=== PATIENT | male | born 1945 | race Caucasian/White ===

== ENCOUNTER → 2016-07-25 | Outpatient (CLI) | payer MEDICARE, OTHER ==
[~2016-07-25] MED LIST: ACAI BERRY500 MG PO; ALEVE PO; ARIXTRA2.5 MG/0.1; ARIXTRA2.5 MG/0.5 INJ; BP MED; CERTAGEN PO; FISH OIL PO; FISHOIL; FLOMAX PO; FLOMAX0.4 M1 PO; HYDROCODONE-APA1 T33 PO; LEVAQUIN PO; LORTAB 10/500 T1 TAB PO; METRONIDAZOLE PO; MULTI VIT PO; MULTIVITAMIN1 UDCAP PO; OMEPRAZOLE40 MG PO; OPDIVO; OXYCODONE; PATIENT'S PHARMACY; PERCOCET5/325 PO; PROTONIX PO; SAW PALMETTO; SODIUM BICARBO650 MG PO; TYLENOL ARTHRITIS PO; VICODIN 5/500 T1 TAB PO; VIT B-12 PO; VITAMIN A PO; VITAMIN B 12; VITAMIN C DAILY; VITAMIN C PO; VITAMIN D 4001 UDTAB PO; VITAMIN D DAILY; [UNRECOGNIZED DRUG - OTHER]
--- NOTE | ~2016-07-25 | MR113 ---
[facility] A Service of [facility] & [facility] RADIOLOGY TEXT RESULTS PATIENT: IMANI WHITLEY LOCATION: [facility] : 47 UNIT #: [id number] AGE: [address]: Ahsan Sanchez MD SEX: M ORDER DR: [id number] [address] [address] [id number] O MR#: [id number] Acc #: [id number] NAME: IMANI WHITLEY : 1945 SEX: M STUDY DATE/TIME: 07/25/2016 8:47 UNIT: [facility] ROOM: STUDY DESCRIPTION: MR Lumbar Wo Contrast Attending Physician: Ahsan Sanchez Referring Physician: Ahsan Sanchez Ordering Physician: Physician Non-Staff Primary Care Physician: Jesus Altman M.D. MRI CENTER REPORT This report is preliminary unless electronic signature is present. EXAM MRI of the lumbar spine without contrast dated 07/25/2016. COMPARISON None. HISTORY Increasing low back pain for the last 2-3 months, particularly in the right side. History of renal cell carcinoma. FINDINGS Multisequence, multiplanar imaging of the lumbar spine was obtained without contrast. Patient has a solitary kidney with renal insufficiency, and hence refused contrast at this time. Vertebral body heights and alignment are preserved. There is a fatty signal lesion with some edema noted in the right L1 pedicle. It is probably a non-aggressive lesion, like atypical hemangioma. Degenerative disc signal loss is seen throughout the visualized thoracolumbar spine. Conus terminates at inferior L1, close to L1-2. Signal of conus and cauda equina are within normal limits. Pre- and paravertebral soft tissues do not demonstrate any significant abnormality. L1-2: Mild disc bulge, which is slightly prominent in the left foraminal to extraforaminal region suspicious for small protrusion. Mild inferior left neural foraminal encroachment is seen with mild bilateral facet changes. No canal stenosis. L2-3: Mild disc bulge with superimposed left foraminal to extraforaminal broad-based protrusion with mild to moderate left neural foraminal narrowing. Mild bilateral facet changes are noted without canal stenosis. L3-4: Moderate disc bulge with superimposed bilateral foraminal to extraforaminal broad-based disc protrusions, slightly worse on the left. [facility]. [facility] A Service of [facility] RADIOLOGY TEXT RESULTS PATIENT: IMANI WHITLEY LOCATION: [facility] : 47 UNIT #: [id number] AGE: [address]: Ahasn Sanchez MD SEX: M ORDER DR: There is some irregularity in the left ligamentum flavum. It is unclear if patient has had prior surgery at this level. Mild to moderate left facet hypertrophic changes seen. There are bilateral foraminal to extraforaminal broad-based protrusions, worse on the left. Mild bilateral neural foraminal narrowing is seen, worse on the left. L4-5: Concentric disc bulge which is asymmetrically prominent in bilateral foraminal to extraforaminal regions suggestive of superimposed mild broad-based protrusions. Very severe right and severe left facet hypertrophic changes are noted with mild canal stenosis. Mild bilateral neural foraminal narrowing is seen. L5-S1: Concentric disc bulge with moderate to severe left and mild right facet hypertrophic change. No canal stenosis or neural foraminal narrowing. There is a mass in the left lateral aspect of the thoracic spine at the level of T12. It is noted in the region of the costovertebral joint, adjacent pedicle and left rib. It is seen only in the edge of the sagittal images and is incompletely characterized on the current study. Refer to MRI of the abdomen, which demonstrates this lesion in better detail when compared to the current study. There is a fatty signal lesion with some edema noted in the right L1 pedicle. It is probably a non-aggressive lesion, like atypical hemangioma. IMPRESSION 1. In the left lateral aspect of the spine abutting the left T12 pedicle, left lateral body, there is a mass which measures 1.8 cm in AP dimension and 2.2 cm in height. It is anterior and probably abutting the left transverse process of T12. Axial images were not obtained through this level, as it is a lumbar spine study. Refer to MRI of the abdomen from 07/07/2016, which demonstrates this finding in better detail. In a setting of malignancy, it is likely metastatic disease. 2. Degenerative changes are noted at multiple levels of the lumbar spine as described above, relatively worse at L3-4 and L4-5. 3. There is irregularity noted in the left ligamentum flavum of L3-4. It is unclear if patient has had previous intervention in this region. Correlate with history. It is noted only in portions of the ligamentum along the superior aspect but the inferior aspect it is intact. No postoperative fluid collections are seen. There is some change noted in the left paraspinal soft tissue at this level. 4. There is a fatty signal lesion with some edema noted in the right L1 pedicle. It is probably a non-aggressive lesion, like atypical hemangioma. STS. [facility] A Service of [facility] RADIOLOGY TEXT RESULTS PATIENT: IMANI WHITLEY LOCATION: [facility] #: [id number] : 49 UNIT #: [id number] AGE: [address]: Ahsan Sanchez MD SEX: M ORDER DR: Dictated by... Gabrielle Adkins M.D. THIS IS AN ELECTRONICALLY VERIFIED REPORT Gabrielle Adkins M.D. at 07/27/2016 9:04 AM CPR/psc TD: 07/25/2016 23:30 JOB #: [id number] MRI CENTER REPORT
== END | disposition home or self-care (01) ==
LOC: SMRI 08:19
DX: N17.9 Acute kidney failure, unspecified (principal); M47.816 Spondylosis without myelopathy or radiculopathy, lumbar region; G95.9 Disease of spinal cord, unspecified; Z85.528 Personal history of other malignant neoplasm of kidney
CPT/HCPCS: 72148

== ENCOUNTER → 2016-07-28 | Outpatient (CLI) | payer MEDICARE, OTHER ==
--- NOTE | ~2016-07-28 | NM8 ---
[facility] A Service of [facility] & [facility] RADIOLOGY TEXT RESULTS PATIENT: IMANI WHITLEY LOCATION: [facility] : 49 UNIT #: [id number] AGE: [address]: Albert Steiner MD SEX: M ORDER DR: [id number] [facility] [address] [place], [place] [address] [id number] O MR#: [id number] Acc #: [id number] NAME: IMANI WHITLEY : 1945 SEX: M STUDY DATE/TIME: 07/28/2016 11:15 UNIT: [facility] ROOM: STUDY DESCRIPTION: DC Bone or Joint Whole Body Attending Physician: Albert Steiner M.D. Referring Physician: Albert Steiner M.D. Ordering Physician: Albert Steiner M.D. Primary Care Physician: Jesus Altman M.D. MEDICAL IMAGING REPORT This report is preliminary unless electronic signature is present EXAM Whole-body bone scan HISTORY 71-year-old male diagnosed with renal cell carcinoma 22 years ago. Surveillance for metastatic disease. Complains of diffuse body pain, pain lower back. COMPARISON MR pelvis 07/07/2016, CT chest 07/07/2016. FINDINGS Whole-body and selected spot images were performed of the axial and appendicular skeleton following the intravenous administration of 28.9 mCi technetium 99m MDP. Examination demonstrates multiple foci of abnormal uptake to include the right anterior seventh rib, left anterior eighth rib and also at the left T12 costovertebral junction. This corresponds to expansile bone lesions and soft tissue lesions noted on recent chest CT and are most compatible with osseous metastatic disease in this patient with a history of renal cell carcinoma. There are probably 2 foci of increased uptake involving the left ribs involving both the eighth and ninth posterior lateral ribs. Again this is most compatible with metastatic disease. Degenerative uptake noted in the right knee. Patient status post left total knee arthroplasty. There is absence of the left renal activity consistent with a nephrectomy. Degenerative uptake is seen within the left foot and ankle and also at the right first CMC joint. IMPRESSION Abnormal uptake within the right seventh and left eighth and ninth ribs and also near the left T12 costovertebral junction corresponding to bone lesions noted on recent chest CT and are most compatible with areas of osseous metastatic disease. No other definite foci of osseous metastatic disease are demonstrated. [facility] A Service of [facility] RADIOLOGY TEXT RESULTS PATIENT: IMANI WHITLEY LOCATION: [facility] : 47 UNIT #: [id number] AGE: [address]: Albert Steiner MD SEX: M ORDER DR: Dictated by... Alexandra Lyman M.D. THIS IS AN ELECTRONICALLY VERIFIED REPORT Alexandra Lyman M.D. at 07/29/2016 5:10 PM KEY/lelia TD: 07/29/2016 06:08 JOB #: [id number] MEDICAL IMAGING REPORT COPY
== END | disposition home or self-care (01) ==
LOC: CNUC 07:48
DX: C65.1 Malignant neoplasm of right renal pelvis (principal); E03.9 Hypothyroidism, unspecified; R94.8 Abnormal results of function studies of other organs and systems
CPT/HCPCS: 78306; A9503

== ENCOUNTER → 2016-09-19 | Outpatient (CLI) | payer MEDICARE, OTHER ==
--- NOTE | ~2016-09-19 | MR3 ---
[facility] A Service of [facility] RADIOLOGY TEXT RESULTS PATIENT: IMANI WHITLEY LOCATION: [facility] : 47 UNIT #: [id number] AGE: [address]: Jesus Altman MD SEX: M ORDER DR: [id number] [address] [address] [id number] O MR#: [id number] Acc #: [id number] NAME: IMANI WHITLEY : 1945 SEX: M STUDY DATE/TIME: 09/19/2016 14:27 UNIT: [facility] ROOM: STUDY DESCRIPTION: MR Abdomen Wo Contrast Attending Physician: Jesus Altman M.D. Referring Physician: Jesus Altman M.D. Ordering Physician: Jesus Altman M.D. Primary Care Physician: Jesus Altman M.D. MRI CENTER REPORT This report is preliminary unless electronic signature is present. EXAM MR abdomen INDICATION Renal cell carcinoma. Observation for metastatic disease status post chemotherapy and radiation therapy. TECHNIQUE Multiplanar MRI of the abdomen without contrast. COMPARISON CT abdomen and pelvis dated 09/19/2016 and MR abdomen and pelvis dated 07/07/2016. FINDINGS There are 2 rib lesions on the left posterior lateral chest wall/costophrenic sulcus. These are unchanged from the prior MRI. The initial index lesion measures 3.3 x 1.4 cm compared to 3.1 x 1.3 cm. The second lesion measures 3.4 x 2.4 cm compared to 3.6 x 2.4 cm. No new lesions are identified. Patient is status post left nephrectomy and left adrenalectomy. The right adrenal gland and right kidney are unchanged. There is a small cyst in the lower pole right kidney. The bowel is not dilated. Liver, pancreas, spleen are unchanged. A lesion near the costovertebral junction of the 12th rib is unchanged measuring 1.7 cm (2.0 cm previously). IMPRESSION No evidence of disease progression. The lesions associated with the [facility] A Service [facility] RADIOLOGY TEXT RESULTS PATIENT: IMANI WHITLEY LOCATION: [facility] : 47 UNIT #: [id number] AGE: [address]: Jesus Altman MD SEX: M ORDER DR: costophrenic angle/left posterior lateral ribs are unchanged. Lesion adjacent to the T12 vertebra is also unchanged. Dictated by... Solis Jung M.D. THIS IS AN ELECTRONICALLY VERIFIED REPORT Solis Jung M.D. at 09/21/2016 2:46 PM KIRSTIN/mik TD: 09/21/2016 12:22 JOB #: [id number] MRI CENTER REPORT Page 1 of 1
--- NOTE | ~2016-09-19 | CT57 ---
[facility] A Service of [facility] & [facility] RADIOLOGY TEXT RESULTS PATIENT: IMANI WHITLEY LOCATION: [facility] : 47 UNIT #: [id number] AGE: [address]: Jesus Altman MD SEX: M ORDER DR: [id number] [address] [address] [id number] O MR#: [id number] Acc #: [id number] NAME: IMANI WHITLEY : 1945 SEX: M STUDY DATE/TIME: 09/19/2016 13:57 UNIT: [facility] ROOM: STUDY DESCRIPTION: CT Chest Wo Cont Attending Physician: Jesus Altman M.D. Referring Physician: Jesus Altman M.D. Ordering Physician: Jesus Altman M.D. Primary Care Physician: Jesus Altman M.D. MEDICAL IMAGING REPORT This report is preliminary unless electronic signature is present. EXAM CT of the chest without contrast INDICATIONS Left renal cancer. This patient has a known history of metastatic disease. This exam is requested for surveillance for metastatic disease. TECHNIQUE Axial CT images were obtained from the thoracic inlet through the dome of the diaphragm. No intravenous contrast material was administered. This CT exam was performed with one or more of the following radiation dose reduction techniques: Automatic exposure control, adjustment of mA and/or kV according to patient size, and iterative reconstruction. FINDINGS There is a stable area of scarring identified within the right upper lobe. There is a left lower lobe pulmonary nodule which measures about 1.2 cm in size; it has increased in size when compared to the prior examination. Some additional scarring is seen within the left lower lobe and within the lingula. Thyroid gland, trachea and esophagus appear unremarkable. There is no pleural or pericardial effusion. There is aneurysmal dilatation of the ascending thoracic aorta measuring up to 4.3 cm. Aortic root is also dilated at 4 cm. Mediastinal lymph nodes really do not appear pathologically enlarged. Patient's CT of the abdomen will be dictated separately. There is a metastasis associated with the left ninth rib which has increased in size when compared to the prior examination. There is also an additional metastasis involving the left twelfth rib which also appears slightly larger at 1.5 x 1.8 cm. There is metastatic involvement of the right seventh rib which has also progressed with a soft tissue component measuring up to about 4.9 x 2.1 cm. I am not convinced I can see any new osseous lesions. [facility]. [facility] A Service of [facility] & [facility] RADIOLOGY TEXT RESULTS PATIENT: IMANI WHITLEY LOCATION: [facility] : 47 UNIT #: [id number] AGE: [address]: Jesus Altman MD SEX: M ORDER DR: IMPRESSION 1. Patient is again noted to have multiple osseous metastases. These have increased in size when compared to the prior exam from June 2016. This is characteristic of progression of disease. I do not however see any new osseous lesions on today's exam. There is also a nodule seen within the left lower lobe which has increased in size. This nodule measures up to about 1.2 cm. Previously it measured about 1 cm and this certainly is concerning for pulmonary metastatic disease. No additional pulmonary nodules or masses are seen. Patient's CT of the abdomen and pelvis will be dictated separately. 2. Aneurysmal dilatation of the ascending thoracic aorta and aortic root. 3. Please see the body of the report for any other additional incidental findings. Dictated by... Kiana Escobar M.D. THIS IS AN ELECTRONICALLY VERIFIED REPORT Kiana Escobar M.D. at 09/20/2016 4:58 PM AFF/psc TD: 09/19/2016 21:12 JOB #: [id number] MEDICAL IMAGING REPORT Page 1 of 1
--- NOTE | ~2016-09-19 | CT4 ---
[facility] A Service of [facility] & [facility] RADIOLOGY TEXT RESULTS PATIENT: IMANI WHITLEY LOCATION: [facility] : 47 UNIT #: [id number] AGE: [address]: Jesus Altman MD SEX: M ORDER DR: [id number] [place] [id number] O MR#: [id number] Acc #: [id number] NAME: IMANI WHITLEY : 1945 SEX: M STUDY DATE/TIME: 09/19/2016 12:59 UNIT: [facility] ROOM: STUDY DESCRIPTION: CT Abd and Pelv Wo Cont Attending Physician: Jesus Altman M.D. Referring Physician: Jesus Altman M.D. Ordering Physician: Jesus Altman M.D. Primary Care Physician: Jesus Altman M.D. MEDICAL IMAGING REPORT This report is preliminary unless electronic signature is present. EXAM CT abdomen and pelvis without contrast 09/19/2016 INDICATIONS Renal cell carcinoma. Restaging. Observation for metastatic disease. PROCEDURE Unenhanced CT of the abdomen and pelvis. This CT exam was performed with one or more of the following radiation dose reduction techniques: automatic exposure control, adjustment of mA and/or kV according to patient size, and iterative reconstruction. COMPARISON STUDIES 07/21/2015 and MRI of the abdomen from 11/24/2015 FINDINGS Refer to the separately dictated chest CT for thoracic findings. ABDOMEN WITHOUT CONTRAST: Mild hepatic steatosis. The spleen, right kidney, right adrenal gland, pancreas are unremarkable. Previous cholecystectomy. Uncomplicated sigmoid diverticula. Appendix is normal. Bowel loops are nondilated. The patient is status post left nephrectomy and adrenalectomy. No abdominal adenopathy. PELVIS WITHOUT CONTRAST: No pelvic mass or fluid. There is a lucent lesion in the medial left twelfth rib that measures 1.5 cm. It is not significantly changed. Lytic lesion involving the posterolateral left ninth rib, measures approximately 3.2 cm. This previously measured at 2.1 cm on the previous MRI. No new bone lesions are seen. [facility] A Service of [facility] & [facility] RADIOLOGY TEXT RESULTS PATIENT: IMANI WHITLEY LOCATION: [facility] : 47 UNIT #: [id number] AGE: [address]: Jesus Altman MD SEX: M ORDER DR: IMPRESSION 1. A lytic lesion involving the posterolateral left ninth rib measures slightly larger than on the previous MRI on 11/24/2015. This partially could be related to differences in technique, but it does not appear larger. A lytic lesion in the medial left twelfth rib appears to be stable. 2. No evidence for soft tissue metastatic disease in the abdomen or pelvis. 3. Mild hepatic steatosis. 4. Prior left nephrectomy and adrenalectomy changes. 5. Refer to the separately dictated CT of the chest for thoracic findings. Dictated by... Beto Miller M.D. THIS IS AN ELECTRONICALLY VERIFIED REPORT Beto Miller M.D. at 09/22/2016 7:05 AM Robin TD: 09/19/2016 15:36 JOB #: [id number] MEDICAL IMAGING REPORT Page 1 of 1
--- NOTE | ~2016-09-19 | MR152 ---
[facility] A Service [facility] RADIOLOGY TEXT RESULTS PATIENT: IMANI WHITLEY LOCATION: [facility] : 47 UNIT #: [id number] AGE: [address]: Jesus Altman MD SEX: M ORDER DR: [id number] [place] [id number] O MR#: [id number] Acc #: [id number] NAME: IMANI WHITLEY : 1945 SEX: M STUDY DATE/TIME: 09/19/2016 14:51 UNIT: [facility] ROOM: STUDY DESCRIPTION: MR Pelvis Wo Contrast Attending Physician: Jesus Altman M.D. Referring Physician: Jesus Altman M.D. Ordering Physician: Jesus Altman M.D. Primary Care Physician: Jesus Altman M.D. MRI CENTER REPORT This report is preliminary unless electronic signature is present. EXAM MR pelvis without contrast. INDICATION Renal cell carcinoma. Observation for metastatic disease. Restaging. TECHNIQUE Multiplanar MRI of the pelvis without contrast. COMPARISON CT chest, abdomen and pelvis dated 09/19/2016 and MR abdomen and pelvis dated 07/07/2016. FINDINGS No pathologically enlarged pelvic or inguinal lymph nodes. No abnormal bone marrow signal. Bladder is unremarkable. There are small bilateral hydroceles. IMPRESSION No evidence of metastatic disease in the pelvis. Dictated by... Solis Jung M.D. THIS IS AN ELECTRONICALLY VERIFIED REPORT Solis Jung M.D. at 09/21/2016 2:46 PM RPC/karen TD: 09/21/2016 12:28 JOB #: [id number] [facility] A [facility] RADIOLOGY TEXT RESULTS PATIENT: IMANI WHITLEY LOCATION: [facility] : 47 UNIT #: [id number] AGE: [address]: Jesus Altman MD SEX: M ORDER DR: MRI CENTER REPORT Page 1 of 1
== END | disposition home or self-care (01) ==
LOC: SCT 12:56
DX: C64.2 Malignant neoplasm of left kidney, except renal pelvis (principal); C79.51 Secondary malignant neoplasm of bone; C78.02 Secondary malignant neoplasm of left lung; N28.9 Disorder of kidney and ureter, unspecified; K76.0 Fatty (change of) liver, not elsewhere classified; I71.2 Thoracic aortic aneurysm, without rupture; Z90.5 Acquired absence of kidney; Z90.89 Acquired absence of other organs
CPT/HCPCS: 71250; 72195; 74176; 74181

== ENCOUNTER → 2016-11-18 | Outpatient (CLI) | payer MEDICARE, OTHER ==
--- NOTE | ~2016-11-18 | MR152 ---
[facility] A Service [facility] RADIOLOGY TEXT RESULTS PATIENT: IMANI WHITLEY LOCATION: [facility] : 49 UNIT #: [id number] AGE: [address]: Jesus Altman MD SEX: M ORDER DR: [id number] [address] [address] [id number] O MR#: [id number] Acc #: [id number] NAME: IMANI WHITLEY : 1945 SEX: M STUDY DATE/TIME: 11/18/2016 9:09 UNIT: [facility] ROOM: STUDY DESCRIPTION: MR Pelvis Wo Contrast Attending Physician: Jesus Altman M.D. Referring Physician: Jesus Altman M.D. Ordering Physician: Jesus Altman M.D. Primary Care Physician: Jesus Altman M.D. MRI CENTER REPORT This report is preliminary unless electronic signature is present. EXAM MRI of the pelvis. HISTORY Renal cell carcinoma with bone metastasis. Patient for restaging and observation for metastatic disease. COMPARISON MRI of the pelvis, 09/19/2016. TECHNIQUE Multiplanar, multiecho imaging was performed of the hips and pelvis utilizing a high-field magnet dedicated protocol. FINDINGS Bone structure and alignment appears normal. No focal bone lesion identified. Minimal degenerative change, lower lumbar spine. SI joints and hip joints unremarkable. Proximal pelvic thigh musculature appears normal. Internal pelvic structures unremarkable. IMPRESSION No MRI findings to suggest metastatic disease to the pelvis. Dictated by... Alexandra Lyman M.D. THIS IS AN ELECTRONICALLY VERIFIED REPORT Alexandra Lyman M.D. at 11/22/2016 9:30 AM JAMELS/maximust [facility] A Service [facility] RADIOLOGY TEXT RESULTS PATIENT: IMANI WHITLEY LOCATION: [facility] : 49 UNIT #: [id number] AGE: [address]: Jesus Altman MD SEX: M ORDER DR: TD: 11/18/2016 17:53 JOB #: [id number] MRI CENTER REPORT Page 1 of 1
--- NOTE | ~2016-11-18 | MR3 ---
[facility] A Service [facility] RADIOLOGY TEXT RESULTS PATIENT: IMANI WHITLEY LOCATION: [facility] : 49 UNIT #: [id number] AGE: [address]: Jesus Altman MD SEX: M ORDER DR: [id number] [address] [address] [id number] O MR#: [id number] Acc #: [id number] NAME: IMANI WHITLEY : 1945 SEX: M STUDY DATE/TIME: 11/18/2016 8:43 UNIT: [facility] ROOM: STUDY DESCRIPTION: MR Abdomen Wo Contrast Attending Physician: Jesus Altman M.D. Referring Physician: Jesus Almtan M.D. Ordering Physician: Jesus Altman M.D. Primary Care Physician: Jesus Altman M.D. MRI CENTER REPORT This report is preliminary unless electronic signature is present. EXAM MRI abdomen without contrast INDICATION Renal cell carcinoma. Restaging. Observation for response to therapy metastatic disease. PROCEDURE Multiplanar, multisequence MR imaging of the abdomen without the administration of contrast. COMPARISON 09/19/2016. FINDINGS Two left posterolateral rib lesions are not significantly changed. One measures 3.1 x 1.4 cm and the other 3.3 x 2.1 cm. A left paravertebral lesion just to the left of the T12 vertebral body measures 1.6 cm and is also not significantly changed. No convincing evidence for new metastatic disease. There are a few small liver and splenic cysts. Spleen is stable in size. Previous left nephrectomy and adrenalectomy. Small cyst in the right kidney. There is a small nodule adjacent to the tail of pancreas that follows splenic signal favored to represent a splenule. The pancreas, bowel loops have normal signal. Previous cholecystectomy. IMPRESSION No change from 09/19/2016. No evidence for disease progression. Stable left posterolateral rib lesions and a paravertebral lesion on the left at the T12 level. [facility] A Service [facility] RADIOLOGY TEXT RESULTS PATIENT: IMANI WHITLEY LOCATION: [facility] #: [id number] : 49 UNIT #: [id number] AGE: [address]: Jesus Altman MD SEX: M ORDER DR: STAT * RESULT Dictated by... Beto Miller M.D. THIS IS AN ELECTRONICALLY VERIFIED REPORT Beto Miller M.D. at 11/21/2016 1:15 PM ANNE/lelia TD: 11/21/2016 08:58 JOB #: [id number] MRI CENTER REPORT Page 1 of 1
--- NOTE | ~2016-11-18 | CT57 ---
[facility] A Service of [facility] & [facility] RADIOLOGY TEXT RESULTS PATIENT: IMANI WHITLEY LOCATION: [facility] : 47 UNIT #: [id number] AGE: [address]: Jesus Altman MD SEX: M ORDER DR: [id number] [address] [address] [id number] O MR#: [id number] Acc #: [id number] NAME: IMANI WHITLEY : 1945 SEX: M STUDY DATE/TIME: 11/18/2016 08:36 UNIT: [facility] ROOM: STUDY DESCRIPTION: CT Chest Wo Cont Attending Physician: Jesus Altman M.D. Referring Physician: Jesus Altman M.D. Ordering Physician: Jesus Altman M.D. Primary Care Physician: Jesus Altman M.D. MEDICAL IMAGING REPORT This report is preliminary unless electronic signature is present. EXAM CT chest without contrast, 11/18/2016, 0836 hours. HISTORY 71-year-old man with history of renal cell carcinoma with history of recent chemo and radiation therapy. Patient complains of diffuse bone pain. Observation for suspected malignant neoplasm. COMPARISON Chest CT, 09/19/2016. TECHNIQUE Helical noncontrasted images were obtained from the thoracic inlet through the adrenal glands. Sagittal and coronal reconstructions were performed. Total exam DLP 917 mGy-cm. This CT exam was performed with one or more of the following radiation dose reduction techniques: automatic exposure control, adjustment of mA and/or kV according to patient size, and iterative reconstruction. FINDINGS Images through the thoracic inlet are degraded by streak artifact. No definite adenopathy is seen. There is ascending aortic aneurysm measuring 4.3 cm, unchanged from prior study. Aortic root is mildly dilated and unchanged. Cardiac chambers, pericardium, and esophagus are normal. There is no lymphadenopathy. Lung window images demonstrate stable linear scarring with calcification in the right upper lobe. There is linear scarring in the lingula. There is a nodule of the extreme left lung base lateral to the dome of the left hemidiaphragm now measuring 7 mm, previously 1.2 cm. It is smaller and more well defined on today's study suggesting improvement. No definite new lung nodules. [facility] A Service of [facility] RADIOLOGY TEXT RESULTS PATIENT: IMANI WHITLEY LOCATION: [facility] : 49 UNIT #: [id number] AGE: [address]: Jesus Altman MD SEX: M ORDER DR: Limited views through the upper abdomen demonstrate no liver lesion. The right adrenal gland is normal. There is left nephrectomy change. Bone window images suggest interval improvement. There is decrease in soft tissue mass associated with the destructive lesion at the lateral left ninth rib. Residual soft tissue density measures 3.2 x 2.5 cm, previously 3.3 x 3.6 cm. Soft tissue density associated with a lytic lesion at the medial left 12th rib has improved, now measuring 1.6 x 1.5 cm, previously 1.8 x 1.5 cm. Soft tissue density and destructive lesion at the anterolateral right seventh rib has also improved measuring 1.9 x 0.9 cm, previously 4.9 x 2.1 cm. No new bone lesions are seen. IMPRESSION As compared to 09/19/2016, there has been interval decrease in size of a nodule in the left lower lobe now 7 mm, previously 12 mm. There is interval decrease in the soft tissue component at the lytic lesions at the left 9th, 12th ribs and the right seventh rib. No new rib lesions are seen. Dictated by... Zenaida Alarcon M.D. THIS IS AN ELECTRONICALLY VERIFIED REPORT Zenaida lAarcon M.D. at 11/18/2016 2:33 PM Lisa TD: 11/18/2016 12:49 JOB #: [id number] MEDICAL IMAGING REPORT Page 1 of 1
== END | disposition home or self-care (01) ==
LOC: SMRI 08:15
DX: C79.51 Secondary malignant neoplasm of bone (principal); C78.00 Secondary malignant neoplasm of unspecified lung; R91.1 Solitary pulmonary nodule; C64.9 Malignant neoplasm of unspecified kidney, except renal pelvis; N28.9 Disorder of kidney and ureter, unspecified; M70.22 Olecranon bursitis, left elbow
CPT/HCPCS: 71250; 72195; 74181

== ENCOUNTER → 2017-01-30 | Outpatient (CLI) | payer MEDICARE, OTHER ==
--- NOTE | ~2017-01-30 | MR152 ---
[facility] A Service of [facility] RADIOLOGY TEXT RESULTS PATIENT: IMANI WHITLEY LOCATION: [facility] : 47 UNIT #: [id number] AGE: [address]: Jesus Altman MD SEX: M ORDER DR: [id number] [place] [id number] O MR#: [id number] Acc #: [id number] NAME: IMANI WHITLEY : 1945 SEX: M STUDY DATE/TIME: 01/30/2017 9:11 UNIT: [facility] ROOM: STUDY DESCRIPTION: MR Pelvis Wo Contrast Attending Physician: Jesus Altman M.D. Referring Physician: Jesus Altman M.D. Ordering Physician: Jesus Altman M.D. Primary Care Physician: Jesus Altman M.D. MRI CENTER REPORT This report is preliminary unless electronic signature is present. EXAM MRI pelvis without contrast. INDICATIONS Renal cell carcinoma. Restaging. Observation for metastatic disease. PROCEDURE Unenhanced multiplanar, multisequence MR imaging of the pelvis. COMPARISON 11/18/2016 FINDINGS No convincing evidence for metastatic disease in the pelvis. There is a trace amount of strandy fluid in the lower abdomen and pelvis. There are bilateral hydroceles that are similar to the previous study. The bladder and prostate gland have normal signal intensity. No appreciable abnormal marrow signal. IMPRESSION No evidence for metastatic disease to the pelvis. Dictated by... Beto Miller M.D. THIS IS AN ELECTRONICALLY VERIFIED REPORT Beto Miller M.D. at 02/01/2017 8:05 AM EED/adria TD: 01/31/2017 14:25 JOB #: [id number] [facility] A Service [facility] RADIOLOGY TEXT RESULTS PATIENT: IMANI WHITLEY LOCATION: [facility] : 49 UNIT #: [id number] AGE: [address]: Jesus Altman MD SEX: M ORDER DR: MRI CENTER REPORT Page 1 of 1
--- NOTE | ~2017-01-30 | CT57 ---
[facility] A Service of [facility] RADIOLOGY TEXT RESULTS PATIENT: IMANI WHITLEY LOCATION: [facility] : 49 UNIT #: [id number] AGE: [address]: Jesus Altman MD SEX: M ORDER DR: [id number] [address] [address] [id number] O MR#: [id number] Acc #: [id number] NAME: IMANI WHITLEY : 1945 SEX: M STUDY DATE/TIME: 01/30/2017 8:28 UNIT: [facility] ROOM: STUDY DESCRIPTION: CT Chest Wo Cont Attending Physician: Jesus Altman M.D. Referring Physician: Jesus Altman M.D. Ordering Physician: Jesus Altman M.D. Primary Care Physician: Jesus Altman M.D. MEDICAL IMAGING REPORT This report is preliminary unless electronic signature is present. EXAM CT chest without contrast HISTORY A 71-year-old male with metastatic renal cell carcinoma. Patient has undergone previous left nephrectomy. Patient with known lung metastases and bone metastases. Shortness of air. COMPARISON STUDIES CT chest 11/18/[address] exam was performed with one or more of the following radiation dose reduction techniques: automatic exposure control, adjustment of mA and/or kV according to patient size, and iterative reconstruction. FINDINGS Axial images performed through the chest without contrast. Multiplanar reconstructed images reviewed at a workstation. There is a new parenchymal opacity right lateral lung base, measuring up to 6 cm may represent a focal area of airspace disease and pneumonia. Given that this is new from November, a neoplastic process considered unlikely. Small amount of lingular and left lower lobe atelectasis and moderate amount of right upper lobe atelectasis and scarring. Focal scarring and pleural calcifications are seen in the right upper lobe unchanged from prior studies. Trachea and bronchi unremarkable. Heart aorta and pulmonary vessels unremarkable. No significant mediastinal or hilar lymphadenopathy. There is a destructive bone lesion within the left lateral ninth rib with a sizeable pleural component with extension through the chest wall and into the lateral chest wall. This measures about 4.5 x 3.5 cm in greatest dimensions and appears mildly increased when compared to the November study. [facility] A Service of [facility] RADIOLOGY TEXT RESULTS PATIENT: IMANI WHITLEY LOCATION: [facility] : 49 UNIT #: [id number] AGE: [address]: Jesus Altman MD SEX: M ORDER DR: The destructive bone lesion within the right anterior seventh rib does not appear appreciably changed. The lesion in the medial aspect of the left 12th rib also is unchanged from prior studies. This measures about 1.7 x 1.4 cm. The right seventh rib lesion measures about 2.4 x 1 cm. The thoracic inlet unremarkable. IMPRESSION 1. New airspace opacity right lower lobe laterally measuring over 6 cm most concerning for acute infectious process and may represent acute infectious pneumonia. Neoplastic process considered unlikely given its rapid development since November. 2. The right seventh left ninth and left 12th rib lesions relatively stable from November though the left ninth rib lesion does measures slightly larger though this may be due to slice variation. If any, there is only minimal progression of the left ninth rib lesion. No new lesion is identified at this time. Dictated by... Alexandra Lyman M.D. THIS IS AN ELECTRONICALLY VERIFIED REPORT Alexandra Lyman M.D. at 01/31/2017 3:11 PM Cynthia TD: 01/30/2017 21:59 JOB #: [id number] MEDICAL IMAGING REPORT Page 1 of 1
--- NOTE | ~2017-01-30 | MR3 ---
[facility] A Service of [facility] RADIOLOGY TEXT RESULTS PATIENT: IMANI WHITLEY LOCATION: [facility] : 49 UNIT #: [id number] AGE: [address]: Jesus Altman MD SEX: M ORDER DR: [id number] [place] [id number] O MR#: [id number] Acc #: [id number] NAME: IMANI WHITLEY : 1945 SEX: M STUDY DATE/TIME: 01/30/2017 8:46 UNIT: [facility] ROOM: STUDY DESCRIPTION: MR Abdomen Wo Contrast Attending Physician: Jesus Altman M.D. Referring Physician: Jesus Altman M.D. Ordering Physician: Jesus Altman M.D. Primary Care Physician: Jesus Altman M.D. MRI CENTER REPORT This report is preliminary unless electronic signature is present. EXAM MRI abdomen without contrast. INDICATIONS Restaging renal cell carcinoma. Observation of metastatic disease. PROCEDURE Multiplanar, multisequence MR imaging of the abdomen without the administration of contrast. COMPARISON 11/18/2016 FINDINGS 2 adjacent lesions associated with the posterolateral lower left rib are very similar. 1 measures 3.2 cm and the other measures approximately 3.2 cm. These are unchanged from the prior. There is a lesion in the left paravertebral soft tissues, just lateral to the T12 vertebral body that is stable and measures 1.5 cm. No new evidence for metastatic disease in the abdomen. Previous left nephrectomy. Nodule adjacent to the splenic tail follows splenic signal and is favored to represent a small splenule. It is unchanged. There are a few scattered small cysts in the liver, spleen, and right kidney that are unchanged. IMPRESSION No evidence for disease progression. Lesions involving a lower left rib and a small nodule in the left paravertebral soft tissues at the T12 level are unchanged. [facility] A Service of [facility] RADIOLOGY TEXT RESULTS PATIENT: IMANI WHITLEY LOCATION: [facility] : 49 UNIT #: [id number] AGE: [address]: Jesus Altman MD SEX: M ORDER DR: Dictated by... Beto Miller M.D. THIS IS AN ELECTRONICALLY VERIFIED REPORT Beto Miller M.D. at 02/01/2017 8:05 AM ANNE/sonya TD: 01/31/2017 14:27 JOB #: [id number] MRI CENTER REPORT Page 1 of 1
== END | disposition home or self-care (01) ==
LOC: SMRI 07:52
DX: C64.9 Malignant neoplasm of unspecified kidney, except renal pelvis (principal); C78.00 Secondary malignant neoplasm of unspecified lung; C79.51 Secondary malignant neoplasm of bone; R06.02 Shortness of breath; M79.89 Other specified soft tissue disorders
CPT/HCPCS: 71250; 72195; 74181

== ENCOUNTER 2017-01-31 17:28 | Emergency (ER) | payer MEDICARE, OTHER ==
[~2017-01-31] VITALS: Ht 182.9 cm; Wt 104.3 kg
--- NOTE | ~2017-01-31 | CR72 ---
[facility] A Service of [facility] RADIOLOGY TEXT RESULTS PATIENT: IMANI WHITLEY LOCATION: [facility] : 49 UNIT #: [id number] AGE: [address]: Jose Miles MD SEX: M ORDER DR: [id number] [facility] [address] [place], [place] [address] [id number] E MR#: [id number] Acc #: [id number] NAME: IMANI WHITLEY : 1945 SEX: M STUDY DATE/TIME: 01/31/2017 18:31 UNIT: [facility] ROOM: STUDY DESCRIPTION: CR Chest Single View Portable Attending Physician: Jose Miles M.D. Ordering Physician: Jose Miles M.D. Primary Care Physician: Jesus Altman M.D. MEDICAL IMAGING REPORT This report is preliminary unless electronic signature is present EXAM Portable chest 01/31/2017 HISTORY Cough, chest congestion, shortness of breath and rhinorrhea for 4 days, pneumonia. FINDINGS There is mild cardiac enlargement status post median sternotomy. There is airspace consolidation in the right costophrenic angle characteristic of pneumonia. Poor inspiratory result with atelectasis or infiltrate left lower lobe. The upper lungs are clear. Blunting of the costophrenic angles is seen bilaterally. No pneumothorax. IMPRESSION 1. Airspace consolidation in the right costophrenic angle characteristic of pneumonia. 2. Poor inspiratory result with atelectasis or infiltrate left lower lobe. 3. Mild cardiomegaly status post median sternotomy. Dictated by... Johnathon Mukherjee M.D. THIS IS AN ELECTRONICALLY VERIFIED REPORT Johnathon Mukherjee M.D. at 02/01/2017 10:38 AM MEREDITH/lelia TD: 02/01/2017 06:31 JOB #: [id number] MEDICAL IMAGING REPORT Page 1 of 1 COPY
--- NOTE | ~2017-01-31 | EKG ---
PATIENT: IMANI WHITLEY UNIT #: [id number] Ventricular Rate: 82 BPM Atrial Rate: 82 BPM P-R Interval: 154 ms QRS Duration: 90 ms Q-T Interval: 394 ms QTC Calculation(Bezet): 460 ms P [place]: 58 degrees Calculated R [place]: 26 degrees Calculated T [place]: 42 degrees Diagnosis Line: Sinus rhythm with frequent Premature ventricular Diagnosis Line: complexes Diagnosis Line: Otherwise normal ECG Diagnosis Line: No previous ECGs available Diagnosis Line: Confirmed by ZAHRA LYNN MD ([id number]) on Diagnosis Line: 02/02/2017 9:42:27 AM INTERPRETING MD: SHANE ZULETA
--- NOTE | ~2017-01-31 | US84 ---
[id number] [facility] [address] [place], [place] [address] [id number] E MR#: [id number] Acc #: [id number] NAME: IMANI WHITLEY : 1945 SEX: M STUDY DATE/TIME: 01/31/2017 19:19 UNIT: [facility] ROOM: STUDY DESCRIPTION: US LE Veins Complete Lopez Stdy Attending Physician: Jose Miles M.D. Ordering Physician: Jose Miles M.D. Primary Care Physician: Jesus Altman M.D. MEDICAL IMAGING REPORT This report is preliminary unless electronic signature is present EXAM Bilateral lower extremity venous duplex 01/31/2017 HISTORY Bilateral lower extremity edema left greater than right for 2 weeks. Evaluate for deep vein thrombosis. TECHNIQUE Venous ultrasound examination of both lower extremities was performed using grayscale, spectral Doppler and color flow Doppler imaging. FINDINGS The examination is negative. There is no evidence of deep venous thrombus from the groin to the lower calf bilaterally. Visualized greater saphenous veins are also patent. IMPRESSION Negative examination. No evidence of lower extremity deep venous thrombosis. Dictated by... Johnathon Mukherjee M.D. THIS IS AN ELECTRONICALLY VERIFIED REPORT Johnathon Mukherjee M.D. at 02/01/2017 10:39 AM MEREDITH/lelia TD: 02/01/2017 07:04 JOB #: [id number] MEDICAL IMAGING REPORT Page 1 of 1 COPY
[2017-01-31 18:54] LABS: BASOPHIL% 0.9 % (0-2.5); EOSINOPHIL# 0.2 X10e3 (0-0.7); EOSINOPHIL% 4.2 % (0.0-7.0); HEMATOCRIT 38.1 % (38.0-50.0); HEMOGLOBIN 12.5 gm/dL (13.0-16.0); LYMPHOCYTE# 0.6 X10e3 (1.0-3.5); LYMPHOCYTE% 12.1 % (17.0-45.0); MEAN CELL VOLUME 96.9 FL (83-96); MEAN CORPUSCULAR HEMOGLOBIN 31.9 PG (28-34); MEAN CORPUSCULAR HGB CONC 32.9 g/dL (30-36); MEAN PLATELET VOLUME 8.4 FL (6.5-11.5); MONOCYTE# 0.4 X10e3 (0-1.0); MONOCYTE% 8.2 % (3.0-12.0); NEUTROPHIL# 3.8 X10e3 (1.5-7.1); NEUTROPHIL% 74.6 % (40-75); PLATELET COUNT 139 X10e3 (140-420); RED BLOOD COUNT 3.93 X10e (3.90-5.60); RED CELL DISTRIBUTION WIDTH 18.9 % (11.0-15.5); WHITE BLOOD COUNT 5.1 X10e3 (4.0-10.5)
[2017-01-31 18:58] LABS: DIFF IND NO
[2017-01-31 19:11] LABS: INR 1.1; PARTIAL THROMBOPLASTIN TIME 28.1 SECONDS (23.5-31.3); PROTHROMBIN TIME (PATIENT) 11.6 SECONDS (10.0-11.7)
[2017-01-31 19:19] LABS: POC - CKMB 2.6 ng/mL (0.0-7.9); POC - TROPONIN <0.05 ng/mL (<=0.05)
[2017-01-31 19:19] LABS: ALBUMIN SERUM 3.3 g/dL (3.5-5.0); BILIRUBIN, DIRECT 0.2 mg/dL (0.0-0.2); BILIRUBIN,INDIRECT 1.1 mg/dL (0.0-0.9); BILIRUBIN,TOTAL 1.3 mg/dL (0.2-2.0); CALCIUM SERUM 8.4 mg/dL (8.4-10.2); CREATININE SERUM 1.5 mg/dL (0.6-1.4); GLOM FILT RATE Estimated 46.8 mL/min (>60); POTASSIUM 3.4 mmol/L (3.5-5.1)
== END 2017-01-31 22:25 | disposition home or self-care (01) ==
LOC: CED 17:28
PROVIDERS: Emergency Medicine
DX: J18.9 Pneumonia, unspecified organism (principal); R60.0 Localized edema; Z87.891 Personal history of nicotine dependence; Z88.5 Allergy status to narcotic agent
CPT/HCPCS: 36415; 71010; 80048; 80076; 82553; 83880; 84484; 85025; 85610; 85730; 93005; 93970; 94640; 96365; 96367; 99284; J0456; J0696